=== PATIENT | female | born 1970 | race American Indian/Alaskan Native ===

== ENCOUNTER 2019-11-06 11:21 | Outpatient (CLI) | payer OTHER ==
--- NOTE | 2019-11-06 15:44 | Mammography Report ---
DIGITAL SCREENING MAMMOGRAM WITH CAD, 11/06/2019 INDICATION: Routine screening mammography. TECHNIQUE: Digital bilateral 2D mammography was obtained in the craniocaudal and mediolateral obliq ue projections. This examination was interpreted with the benefit of Computer-Aided Detection analysi s. COMPARISON: 07/10/2017 FINDINGS: Breast Density: There are scattered areas of fibroglandular density. There is no evidence of dominant mass, suspicious calcifications or architectural distortion in eithe r breast. IMPRESSION: No mammographic evidence of malignancy. Follow up recommendation: Routine yearly BI-RADS Category 1: Negative. A "normal" or negative report should not discourage follow up or biopsy of a clinically significant f inding. A written summary of these findings will be mailed to the patient. The patient will be entered into a mammography reporting system which will generate a reminder letter for the patient's next appointmen t at the appropriate interval. The [employer] recommends yearly mammograms starting at age 40 and continuing as l mathieu as a woman is in good health. Breast MRI is recommended for women with an approximate 20-25% or greater lifetime risk of breast cancer, including women with a strong family history of breast or ova temo cancer or who have been treated for Hodgkin's disease. Signer Name: Sergio Granados MD Signed: 11/06/2019 3:40 PM Workstation Name: [id number]
== END 2019-11-06 11:22 | disposition home or self-care (01) ==
LOC: SPVWC 11:21
PROVIDERS: ATTEND Internal Medicine
DX: Z12.31 Encounter for screening mammogram for malignant neoplasm of breast (principal); N64.89 Other specified disorders of breast
CPT/HCPCS: 77067

== ENCOUNTER 2020-11-08 11:44 | Outpatient (CLI) | payer OTHER ==
--- NOTE | 2020-11-10 14:04 | Mammography Report ---
DIGITAL SCREENING MAMMOGRAM WITH CAD, 11/08/2020 CLINICAL INFORMATION / INDICATION: Routine screening mammography. TECHNIQUE: Digital bilateral 2D mammography was obtained in the craniocaudal and mediolateral obliqu e projections. This examination was interpreted with the benefit of Computer-Aided Detection analysis . COMPARISON: 11/06/2019, 07/10/2017 FINDINGS: Breast Density: There are scattered areas of fibroglandular density. No dominant mass, suspicious calcifications, or architectural distortion in the left breast. A group of new indistinct calcifications are seen anteriorly along the lower inner right breast measu ring 1 cm. No other significant abnormality of the right breast. IMPRESSION: Indeterminate right breast calcifications as above. A diagnostic right mammogram with mag nification views is recommended. Follow up recommendation: Special View: Mag BI-RADS Category 0: Incomplete. Needs additional imaging evaluation and/or prior mammograms for amandeep rison. A "normal" or negative report should not discourage follow up or biopsy of a clinically significant f inding. A written summary of these findings will be mailed to the patient. The patient will be entered into a mammography reporting system which will generate a reminder letter for the patient's next appointmen t at the appropriate interval. The [employer] recommends yearly mammograms starting at age 40 and continuing as l mathieu as a woman is in good health. Breast MRI is recommended for women with an approximate 20-25% or greater lifetime risk of breast cancer, including women with a strong family history of breast or ova temo cancer or who have been treated for Hodgkin's disease. Signer Name: Farzad Paulson MD Signed: 11/10/2020 1:59 PM Workstation Name: [id number]
== END 2020-11-08 11:45 | disposition home or self-care (01) ==
LOC: SPVWC 11:44
PROVIDERS: ATTEND Internal Medicine
DX: Z12.31 Encounter for screening mammogram for malignant neoplasm of breast (principal)
CPT/HCPCS: 77067

== ENCOUNTER 2020-11-23 13:48 | Outpatient (CLI) | payer OTHER ==
--- NOTE | 2020-11-23 14:54 | Mammography Report ---
DIGITAL DIAGNOSTIC MAMMOGRAM WITH CAD CONVENTIONAL, 11/23/2020 CLINICAL INFORMATION / INDICATION: ABNORMAL MAMMOGRAM TECHNIQUE: Digital right mammographic imaging was performed. This examination was interpreted with the benefit of Computer-aided Detection analysis. COMPARISON: 11/06/2019, 11/08/2020 FINDINGS: Breast Density: There are scattered areas of fibroglandular density. The grouped calcifications in the 4:00 position of the right breast are suspicious. IMPRESSION: Grouped calcifications in the 4:00 position of the right breast are suspicious. Follow up recommendation: Biopsy BI-RADS Category 4: Suspicious for Malignancy. A "normal" or negative report should not discourage follow up or biopsy of a clinically significant f inding. A written summary of these findings will be mailed to the patient. The patient will be entered into a mammography reporting system which will generate a reminder letter for the patient's next appointmen t at the appropriate interval. According to the [employer], yearly mammograms are recommended starting at age 40 and continuing as long as a woman is in good health. Breast MRI is recommended for women with an romel roximately 20-25% or greater lifetime risk of breast cancer, including women with a strong family his tory of breast or ovarian cancer and women who have been treated for Hodgkin's disease. Signer Name: Don Bains MD Signed: 11/23/2020 2:49 PM Workstation Name: [id number]
== END 2020-11-23 13:49 | disposition home or self-care (01) ==
LOC: SPVWC 13:48
PROVIDERS: ATTEND Internal Medicine
DX: R92.8 Other abnormal and inconclusive findings on diagnostic imaging of breast (principal)

== ENCOUNTER 2020-12-08 09:00 | Outpatient (CLI) | payer OTHER ==
--- NOTE | 2020-12-08 11:36 | Mammography Report ---
DIGITAL DIAGNOSTIC MAMMOGRAM WITH CAD CONVENTIONAL, 12/08/2020 CLINICAL INFORMATION / INDICATION: Postbiopsy mammogram following right breast stereotactic biopsy. TECHNIQUE: Digital right mammographic imaging was performed. This examination was interpreted with the benefit of Computer-aided Detection analysis. COMPARISON: Prior mammogram 11/08/2020 FINDINGS: Breast Density: There are scattered areas of fibroglandular density. Postbiopsy mammogram reveals a biopsy cavity and clip appropriately positioned at site of previously described calcifications in the 3:00 position of the right breast, middle depth. Calcifications have been partially removed, and a few faint calcifications are present on the specimen radiograph. IMPRESSION: 1. Appropriately positioned biopsy cavity and clip following right breast stereotactic biopsy. Follow up recommendation: No recall. Post biopsy imaging. A "normal" or negative report should not discourage follow up or biopsy of a clinically significant f inding. A written summary of these findings will be mailed to the patient. The patient will be entered into a mammography reporting system which will generate a reminder letter for the patient's next appointmen t at the appropriate interval. According to the [employer], yearly mammograms are recommended starting at age 40 and continuing as long as a woman is in good health. Breast MRI is recommended for women with an romel roximately 20-25% or greater lifetime risk of breast cancer, including women with a strong family his tory of breast or ovarian cancer and women who have been treated for Hodgkin's disease. Signer Name: Torri Mata MD Signed: 12/08/2020 11:31 AM Workstation Name: [id number]
--- NOTE | 2020-12-08 13:11 | Mammography Report ---
STEREOTACTIC GUIDED RIGHT BREAST BIOPSY, 12/08/2020 CLINICAL INFORMATION / INDICATION: RT ABNORMAL BREAST IMAGING. Patient presents for stereotactic biop sy of a small group of calcifications in the right breast. COMPARISON: Prior mammogram 11/08/2020 PROCEDURE: Risks, benefits, and indications to the procedure were discussed with the patient in detail, includin g bleeding, infection, hematoma formation, and inadequate tissue sampling. The patient agreed to proc eed with both verbal and written consent. A timeout procedure was performed with 2 patient identifier s. The patient was placed in the prone position on the biopsy table. Targeted stereotactic images were o btained of the area of interest. The targeted area was identified and coordinates were determined. Th e breast was cleansed and prepped in the usual sterile fashion. Lidocaine 1% with and without epineph rine was used for local anesthesia. Under direct stereotatic guidance, an 8 gauge Mammotome biopsy de vice was advanced to the correct position and multiple vacuum-assisted core samples were obtained. Po stbiopsy images confirm satisfactory tissue sampling within the biopsy cavity. Specimen radiograph de monstrates a few faint calcifications within the specimen. A biopsy marker was then deployed at the b iopsy site. The biopsy device was removed. Hemostasis was achieved with manual pressure. A sterile pr essure dressing was applied to the skin. Post-biopsy mammogram was obtained. The patient tolerated the procedure without difficulty. No complications were encountered. Postbiopsy instructions were discussed with the patient and given in writing. IMPRESSION: 1. Technically successful stereotactic guided right breast biopsy. Biopsy results are pending and will be reported in an addendum. Signer Name: Torri Mata MD Signed: 12/08/2020 1:06 PM Workstation Name: [id number]
== END 2020-12-08 09:01 | disposition home or self-care (01) ==
LOC: SPVWC 09:00
PROVIDERS: ATTEND Internal Medicine
DX: R92.1 Mammographic calcification found on diagnostic imaging of breast (principal); R92.8 Other abnormal and inconclusive findings on diagnostic imaging of breast; R92.0 Mammographic microcalcification found on diagnostic imaging of breast; N64.89 Other specified disorders of breast
CPT/HCPCS: 19081; 77065; 88305; A4648

== ENCOUNTER 2021-11-30 09:21 | Outpatient (CLI) | payer MEDICARE ==
--- NOTE | 2021-12-02 08:52 | Mammography Report ---
DIGITAL SCREENING MAMMOGRAM WITH CAD, 11/30/2021 CLINICAL INFORMATION / INDICATION: Routine screening mammography. SCREENING MAMMO Z12.31 TECHNIQUE: Digital bilateral 2D mammography was obtained in the craniocaudal and mediolateral obliqu e projections. This examination was interpreted with the benefit of Computer-Aided Detection analysis . COMPARISON: 11/08/2020 and 11/06/2019 FINDINGS: Breast Density: There are scattered areas of fibroglandular density. No dominant mass, suspicious calcifications, or architectural distortion in either breast. Nodular density on the right now contains a biopsy clip. IMPRESSION: No mammographic evidence of malignancy. Follow up recommendation: Routine yearly BI-RADS Category 2: BENIGN. A "normal" or negative report should not discourage follow up or biopsy of a clinically significant f inding. A written summary of these findings will be mailed to the patient. The patient will be entered into a mammography reporting system which will generate a reminder letter for the patient's next appointmen t at the appropriate interval. The [employer] recommends yearly mammograms starting at age 40 and continuing as l mathieu as a woman is in good health. Breast MRI is recommended for women with an approximate 20-25% or greater lifetime risk of breast cancer, including women with a strong family history of breast or ova temo cancer or who have been treated for Hodgkin's disease. Signer Name: Oswaldo Ellis MD Signed: 12/02/2021 8:48 AM Workstation Name: [id number]
== END 2021-11-30 09:22 | disposition home or self-care (01) ==
LOC: SPVWC 09:21
PROVIDERS: ATTEND Internal Medicine
DX: Z12.31 Encounter for screening mammogram for malignant neoplasm of breast (principal)
CPT/HCPCS: 77067